=== PATIENT | female | born 1985 | race Caucasian/White ===

== ENCOUNTER 2017-04-20 20:01 | Emergency (ER) | payer OTHER ==
[2017-04-20 20:01] VITALS: BMI 17.3
[2017-04-20 20:10] VITALS: BP 106/73; PULSE 70; RESP 18; TEMP 98; O2SAT 100
--- NOTE | 2017-04-20 20:29 | C.PDOC ---
History Of Present Illness 31 y/o female with presents to ED with complaints of feeling anxious. Patient reports she has a history of intermittent anxiety for 5 years and states she has been able to resolve with Xanax but for 3 days symptoms have not improved. Patient states she took Xanas and Zoloft with no improvement and now cannot eat , decreased activity and states she feels "like shes going to but doesn't want to ". She states the symptoms have never lasted this long, hasn't seen a psychiatrist but has a scheduled appointment in June. Patient denies SI/HI , chest pain, sob or any other complaints at this time. Time Seen by Provider: 04/20/17 20:13 Chief Complaint (Nursing): Anxiety History Per: Patient History/Exam Limitations: no limitations Onset/Duration Of Symptoms: Days Current Symptoms Are (Timing): Still Present Suicide/Self Injury Attempted (Context): None Associated Symptoms: Anxiety Past Medical History Reviewed: Historical Data, Nursing Documentation, Vital Signs Vital Signs: Last Vital Signs Temp 98 F 04/20/17 20:10 Pulse 70 04/20/17 20:10 Resp 18 04/20/17 20:10 BP 106/73 04/20/17 20:10 Pulse Ox 100 04/20/17 20:46 Surgical History: Appendectomy Family History: States: No Known Family Hx - Social History Hx Tobacco Use: No Hx Alcohol Use: No Hx Substance Use: No Review Of Systems Except As Marked, All Systems Reviewed And Found Negative. Cardiovascular: Negative for: Chest Pain Respiratory: Negative for: Shortness of Breath Skin: Negative for: Rash Neurological: Negative for: Weakness, Numbness Psych: Positive for: Anxiety. Negative for: Psychosis, Suicidal ideation Physical Exam - Physical Exam Appears: Well, No Acute Distress, Other (anxious) Skin: Normal Color, Warm Head: Atraumatic, Normacephalic Eye(s): bilateral: PERRL, EOMI Oral Mucosa: Moist Chest: Symmetrical Cardiovascular: Rhythm Regular Respiratory: Normal Breath Sounds, No Rales, No Rhonchi, No Wheezing Gastrointestinal/Abdominal: Soft, No Tenderness, No Guarding, No Rebound Back: Normal Inspection, No Vertebral Tenderness, No Paraspinal Tenderness Extremity: Normal ROM, No Tenderness, No Swelling Neurological/Psych: Oriented x3, Normal Speech, Normal Cognition, Normal Cranial Nerves, Normal Motor, Normal Sensation Gait: Steady ED Course And Treatment - Laboratory Results Result Diagrams: 04/20/17 20:42 04/20/17 20:42 Lab Interpretation: Normal O2 Sat by Pulse Oximetry: 100 (RA) Pulse Ox Interpretation: Normal Medical Decision Making Medical Decision Makin31 y/o female with pmh of anxiety, presents to ED with complaints of feeling anxious x 3 days, is taking Xanax with no improvement. Plan: - Labs - UA - Etoh - Drug screen - Crisis evaluation Labs reviewed and pt is medically cleared for crisis evaluation. Pt seen and evaluated by PES. As per PES, the pt will need outpt followup with psych. In the meantime the pt is encouraged to continue taking her xanax and zoloft. Advised to f/u with outpt psych referral provided in 2 days without fail. Advised to return to the ER at any time for any new or worsening symptoms. Disposition Counseled Patient/Family Regarding: Studies Performed, Diagnosis, Need For Followup - Disposition Disposition: HOME/ ROUTINE Disposition Time: 21:42 Condition: STABLE Additional Instructions: Return to the ER at any time for any new or worsening symptoms. Otherwise follow up with pmd and outpatient psychiatry referral provided in 1-2 days without fail for re-evaluation. Instructions: Anxiety (ED) Forms: [employer] (Upper Sorbian) Print Language: LATVIAN - Clinical Impression Clinical Impression: Anxiety - PA / SPORTS THERAPIST / Resident Statement MD/DO has reviewed & agrees with the documentation as recorded. - Scribe Statement The provider has reviewed the documentation as recorded by the Radha Madison All medical record entries made by the Radha were at my direction and personally dictated by me. I have reviewed the chart and agree that the record accurately reflects my personal performance of the history, physical exam, medical decision making, and the department course for this patient. I have also personally directed, reviewed, and agree with the discharge instructions and disposition.
[2017-04-20 20:45] LABS: BASO # 0.1 K/uL (0.0-0.2); BASO % 0.9 % (0.0-2.0); EOS # 0.1 K/uL (0.0-0.7); EOS % 0.6 % (0.0-4.0); HEMOGLOBIN 13.9 g/dL (11.0-16.0); LYMPH % 17.8 % (20.0-40.0); MEAN CELL VOLUME 89.3 fL (81.0-99.0); MEAN CORPUSCULAR HGB CONC 33.6 g/dL (33.0-37.0); MEAN PLATELET VOLUME 8.8 fL (7.2-11.7); MONO # 0.8 K/uL (0.0-0.8); MONO % 7.1 % (0.0-10.0); NEUT # 8.2 K/uL (1.8-7.0); NEUT % 73.6 % (50.0-75.0); RBC 4.62 Mil/uL (3.80-5.20); RED CELL DISTRIBUTION WIDTH 12.8 % (11.5-14.5); WHITE BLOOD COUNT 11.2 K/uL (4.8-10.8)
[2017-04-20 20:54] LABS: ALBUMIN 4.1 g/dL (3.5-5.0)
[2017-04-20 20:57] LABS: ALB/GLOB RATIO 1.3 (1.0-2.1); ALT/SGPT 27 U/L (9-52); AST/SGOT 18 U/L (14-36); BARBITURATES, UR NEGATIVE (NEGATIVE); BLOOD UREA NITROGEN 10 mg/dL (7-17); CALCIUM 9.2 mg/dl (8.6-10.4); GFR AFRICAN-AMERICAN > 60; GFR NON-AFRICAN AMERICAN > 60; SQUAMOUS EPITHIAL 2 /hpf (0-5); URINE BACTERIA RARE (<OCC); URINE BILIRUBIN NEGATIVE (NEGATIVE); URINE BLOOD NEGATIVE (NEGATIVE); URINE CLARITY Hazy (Clear); URINE COLOR Yellow (YELLOW); URINE GLUCOSE (UA) NORMAL (Normal); URINE LEUKOCYTE ESTERASE NEG Leu/uL (Negative); URINE NITRATE NEGATIVE (NEGATIVE); URINE PROTEIN NEGATIVE (NEGATIVE); URINE UROBILINOGEN NORMAL mg/dL (0.2-1.0)
[2017-04-20 20:58] LABS: BENZODIAZEPINES, UR POSITIVE (NEGATIVE); URINE AMORPHOUS SEDIMENT OCC /ul (<OCC)
[2017-04-20 21:01] LABS: OPIATES, UR NEGATIVE (NEGATIVE); PHENCYCLIDINE, UR NEGATIVE (NEGATIVE)
== END 2017-04-20 22:06 | disposition home or self-care (01) ==
LOC: C.ER 20:01
DX: F41.9 Anxiety disorder, unspecified (principal)